=== PATIENT | male | born 1955 | race Caucasian/White ===

== ENCOUNTER 2016-09-16 17:28 | Emergency (ER) | payer OTHER ==
[2016-09-16 18:00] VITALS: BP 141/80
--- NOTE | 2016-09-16 19:29 | UC ---
Throat Pain/Nasal Duy HPI - HPI Summary HPI Summary: 3 weeks of left maxillary sinus pain, very congested and tender - History of Current Complaint Chief Complaint: UCGeneralIllness Stated Complaint: SINUS PAIN Time Seen by Provider: 09/16/16 19:28 Hx Obtained From: Patient Onset/Duration: Gradual Onset, Lasting Weeks - 3, Still Present Severity: Moderate Pain Intensity: 7 Pain Scale Used: 0-10 Numeric Cough: Nonproductive Associated Signs & Symptoms: Positive: Sinus Discomfort, Nasal Discharge - Allergies/Home Medications Allergies/Adverse Reactions: Allergies Allergy/AdvReac Type Severity Reaction Status Date / Time No Known Allergies Allergy Verified 09/16/16 17:50 Home Medications: Home Medications Pseudoephedrine TAB* [Sudafed TAB*] 30 mg PO TID PRN 09/16/16 [History Confirmed 09/16/16] PMH/Surg Hx/FS Hx/Imm Hx Previously Healthy: No Endocrine History Of: Reports: Thyroid Disease Denies: Diabetes Cardiovascular History Of: Reports: Hypertension Denies: Cardiac Disorders Respiratory History Of: Denies: Asthma - Surgical History Surgical History: Yes Surgery Procedure, Year, and Place: sinus surgery 2005 - Family History Known Family History: Positive: Cardiac Disease, Hypertension - Social History Occupation: Unemployed Lives: With Family Alcohol Use: None Substance Use Type: None Smoking Status (MU): Never Smoked Tobacco - Immunization History Most Recent Influenza Vaccination: JUN 25 2014 Review of Systems Constitutional: Negative Skin: Negative Eyes: Negative ENT: Ear Ache - left, Nasal Discharge Respiratory: Negative Cardiovascular: Negative Gastrointestinal: Negative Genitourinary: Negative Motor: Negative Neurovascular: Negative Musculoskeletal: Negative Neurological: Headache - left side of face near maxillary sinus Psychological: Negative All Other Systems Reviewed And Are Negative: Yes Physical Exam Triage Information Reviewed: Yes Appearance: Well-Nourished, Ill-Appearing - mild, Pain Distress - mild Vital Signs: Initial Vital Signs Temp 98.2 F 09/16/16 17:52 Pulse 74 09/16/16 17:52 Resp 16 09/16/16 17:52 BP 141/80 09/16/16 17:52 Pulse Ox 95 09/16/16 17:52 Vital Signs Reviewed: Yes Eye Exam: Normal Eyes: Positive: Conjunctiva Clear ENT Exam: Normal ENT: Positive: Normal ENT inspection, Hearing grossly normal, Pharynx normal, Nasal congestion, Nasal drainage, TMs normal. Negative: Tonsillar swelling, Tonsillar exudate, Trismus, Muffled/hoarse voice Dental Exam: Normal Neck exam: Normal Neck: Positive: Supple, Nontender, No Lymphadenopathy Respiratory Exam: Normal Respiratory: Positive: Chest non-tender, Lungs clear, Normal breath sounds, No respiratory distress, No accessory muscle use Cardiovascular Exam: Normal Cardiovascular: Positive: RRR, No Murmur, Pulses Normal, Brisk Capillary Refill Musculoskeletal Exam: Normal Musculoskeletal: Positive: Strength Intact, ROM Intact, No Edema Neurological Exam: Normal Neurological: Positive: Alert Psychological Exam: Normal Skin Exam: Normal Throat Pain/Nasal Course/Dx - Course Assessment/Plan: Augmentin, flonase follow with pcp - Differential Dx/Diagnosis Differential Diagnosis/HQI/PQRI: Otitis Media, Pharyngitis, Sinusitis, URI Provider Diagnoses: Acute Sinusitis Discharge - Discharge Plan Condition: Stable Disposition: HOME Prescriptions: Amoxicillin/Clavulanate TAB* [Augmentin TAB 875*] 875 mg PO BID #20 tab Fluticasone NASAL SPRAY 50MCG* [Flonase NASAL SPRAY 50MCG*] 2 spray BOTH NARES DAILY #1 btl Patient Education Materials: Sinusitis (ED), How to Use Nasal [place] (ED) Referrals: Cherry Silva MD [Primary Care Provider] - If Needed
== END 2016-09-16 19:39 | disposition home or self-care (01) ==
LOC: UCCORT 17:28
DX: J01.90 Acute sinusitis, unspecified (principal)
CPT/HCPCS: 99212; G0463